=== PATIENT | female | born 1955 | race Caucasian/White ===

== ENCOUNTER 2018-09-12 17:36 | Emergency (ER) | payer OTHER ==
[~2018-09-12] VITALS: Ht 152.4 cm; Wt 59.9 kg
[2018-09-12 17:42] VITALS: BP_SYST 140
[2018-09-12] MEDS ORDERED: NACL 0.9% 1,000 ML IV ONE ×3 (20:36→22:30)
[2018-09-12 21:00] LABS: BILIRUBIN,URINE NEGATIVE (NEGATIVE); CLARITY/URINE CLOUDY (CLEAR); COLOR,URINE YELLOW (YELLOW); GLUCOSE,URINE NEGATIVE (NEGATIVE); KETONES,URINE TRACE (NEGATIVE); LEUKOCYTE ESTERASE ,URINE TRACE (NEGATIVE); NITRITE, URINE NEGATIVE (NEGATIVE); PROTEIN URINE TRACE (NEGATIVE)
[2018-09-12 21:16] LABS: BLOOD, URINE TRACE (NEGATIVE)
[2018-09-12 21:22] LABS: BASOPHILS % (AUTO) 0.3 % (0.0-2.0); CALCIUM 8.1 mg/dL (8.4-11.0); CREATININE 0.78 mg/dL (0.55-1.30); EOSINOPHILS # (AUTO) 0.1 K/uL (0.0-0.4); EOSINOPHILS % (AUTO) 1.4 % (0.0-4.0); HEMATOCRIT 30.9 % (36-48); HEMOGLOBIN 9.6 g/dL (12.0-16.0); LYMPHOCYTES # (AUTO) 1.7 K/uL (1.0-5.5); LYMPHOCYTES % (AUTO) 26.7 % (20.5-51.5); MEAN CORPUSCULAR HEMOGLOBIN 22 pg (27-31); MEAN CORPUSCULAR HGB CONC 31 % (32-36); MEAN CORPUSCULAR VOLUME 71 fL (79.0-98.0); MONOCYTES # (AUTO) 0.5 K/uL (0.0-1.0); MONOCYTES % (AUTO) 7.4 % (1.7-9.3); NEUTROPHILS # (AUTO) 3.9 K/uL (1.8-7.7); NEUTROPHILS % (AUTO) 64.2 % (40.0-70.0); PLATELET COUNT (AUTO) 273 K/uL (130-430); RED BLOOD CELL COUNT(AUTO) 4.33 MIL/uL (4.2-6.2); RED CELL DISTRIBUTION WIDTH 16.9 % (9.0-15.0); WHITE BLOOD COUNT (AUTO) 6.2 K/uL (4.8-10.8)
[2018-09-12 21:25] LABS: BACTERIA,URINE FEW /HPF (None Seen); MUCUS,URINE None Seen /LPF (None Seen); RBC,URINE 0-3 /HPF (0-3); URINE AMORPHOUS URATE 4+ /HPF (None Seen); WBC,URINE 0-3 /HPF (0-3)
[2018-09-12 21:26] LABS: POTASSIUM 2.5 mmol/L (3.5-5.1)
[2018-09-12 21:28] LABS: ALBUMIN 3.6 g/dL (3.4-4.8); TOTAL BILIRUBIN 0.8 mg/dL (0.0-1.0)
[2018-09-12] MEDS ORDERED: KCL 40 mEq in 100 mL (PREMIX) 100 ML IV ONE (22:00)
[2018-09-12] MEDS ORDERED: POTASSIUM CHLORIDE 20 MEQ/PKT PACKET PO ONE (22:00)
[2018-09-12] MEDS ORDERED: KCL 20 mEq in 100 mL (PREMIX) 200 ML IV ONE (22:22)
[2018-09-13 00:24] VITALS: BP_SYST 144
== END 2018-09-13 00:24 | disposition home or self-care (01) ==
LOC: SED 17:36
DX: K52.9 Noninfective gastroenteritis and colitis, unspecified (principal); E87.6 Hypokalemia; I10 Essential (primary) hypertension
CPT/HCPCS: 36415; 80053; 81000; 82150; 83690; 85025; 87086; 96361; 96365; 96366; 99283; J3480; J7030

== ENCOUNTER 2019-07-14 20:01 | Emergency (ER) | payer OTHER ==
[~2019-07-14] VITALS: Ht 152.4 cm; Wt 61.2 kg
[2019-07-14 20:44] VITALS: BP_SYST 159
--- NOTE | 2019-07-14 20:45 | NUR ---
Patient to ER bed 07 for evaluation.
--- NOTE | 2019-07-14 20:46 | NUR ---
patient arrived AOx4 with c/o nose bleed x 90 minutes that would not stop. patient denies pain or bleeding at this time. patient has no actively bleeding from either nare. patient denies dizziness, CONDE or otherwise at this time. no other complaint or injury at this time.
--- NOTE | 2019-07-14 20:49 | NUR ---
ER at bedside examining patient.
[2019-07-14] MEDS ORDERED: ONDANSETRON 4 MG ODT TAB PO ONE (21:30)
[2019-07-14] MEDS ORDERED: TRANEXAMIC ACID 1,000 MG/10 ML VIAL IV ONE (21:45)
[2019-07-14] MEDS ORDERED: MORPHINE 2 MG/ML INJ. SYRINGE IM ONE (21:45)
[2019-07-14] MEDS ORDERED: ACETAMINOPHEN 500 MG TABLET PO ONE (21:45)
[2019-07-14 22:49] VITALS: BP_SYST 147
--- NOTE | 2019-07-14 22:49 | NUR ---
Patient given written and verbal discharge instructions and verbalizes understanding. ER MD discussed with patient the results and treatment provided. Patient in stable condition. ID arm band removed. Rx of Zofran given. Patient educated on pain management and to follow up with PMD. Pain Scale 0/10. Opportunity for questions provided and answered. Medication side effect fact sheet provided.
== END 2019-07-14 22:49 | disposition home or self-care (01) ==
LOC: SED 20:01
DX: R04.0 Epistaxis (principal); I10 Essential (primary) hypertension
CPT/HCPCS: 96372; 96374; 99283; J2270; J3490; Q0162

== ENCOUNTER 2019-08-08 21:35 | Emergency (ER) | payer OTHER | END 2019-08-09 00:02 | disposition home or self-care (01) | LOC: SED 21:35 | DX: R04.0 Epistaxis (principal); I10 Essential (primary) hypertension; Z79.899 Other long term (current) drug therapy | CPT/HCPCS: 99281 ==

== ENCOUNTER 2019-08-17 10:40 | Inpatient (IN) | payer OTHER ==
[~2019-08-17] VITALS: Ht 152.4 cm; Wt 62.1 kg
[2019-08-17 10:48] VITALS: BP_SYST 136
--- NOTE | 2019-08-17 10:48 | NUR ---
Placed in room 2 . Placed on youth nutritional monitor, blood pressure machine and pulse oximeter. To gown for exam. Side rails up. Assumed care.
--- NOTE | 2019-08-17 10:50 | NUR ---
Patient arrived via POV, AAOx4, and ambulatory with steady gait. Patient states she received a call from Michelle Astorga NP at [facility] regarding abnormal labs. Patient H/H of 7.6/25.7. Patient states she has been feeling more winded, SOB, increased lethargy, and lightheaded for several weeks now. She thought it was normal, but she is getting prepared for surgery to remove an impacted ear tube. Patient states she does not take blood thinners, but has frequent nose bleeds. Which they were going to cauterize in surgery as well.
--- NOTE | 2019-08-17 11:11 | NUR ---
ER at bedside examining patient.
[2019-08-17] MEDS ORDERED: VALS160T2 PO (11:16)
--- NOTE | 2019-08-17 11:16 | NUR ---
Medication reconciliation completed with information provided by patient, medication bottles at bedside. Any prior medication reconciliation on file was reviewed and corrected.
[2019-08-17 11:44] LABS: BASOPHILS % (AUTO) 0.9 % (0.0-2.0); EOSINOPHILS # (AUTO) 0.1 K/uL (0.0-0.4); EOSINOPHILS % (AUTO) 3.8 % (0.0-4.0); HEMATOCRIT 25.8 % (36-48); HEMOGLOBIN 8.1 g/dL (12.0-16.0); LYMPHOCYTES # (AUTO) 1.2 K/uL (1.0-5.5); LYMPHOCYTES % (AUTO) 34.9 % (20.5-51.5); MEAN CORPUSCULAR HEMOGLOBIN 21 pg (27-31); MEAN CORPUSCULAR HGB CONC 32 % (32-36); MEAN CORPUSCULAR VOLUME 66 fL (79.0-98.0); MONOCYTES # (AUTO) 0.3 K/uL (0.0-1.0); MONOCYTES % (AUTO) 7.1 % (1.7-9.3); NEUTROPHILS # (AUTO) 1.9 K/uL (1.8-7.7); NEUTROPHILS % (AUTO) 53.3 % (40.0-70.0); PLATELET COUNT (AUTO) 264 K/uL (130-430); RED BLOOD CELL COUNT(AUTO) 3.88 MIL/uL (4.2-6.2); RED CELL DISTRIBUTION WIDTH 18.5 % (9.0-15.0); WHITE BLOOD COUNT (AUTO) 3.6 K/uL (4.8-10.8)
[2019-08-17 12:12] LABS: CALCIUM 9.1 mg/dL (8.4-11.0); CREATININE 0.84 mg/dL (0.55-1.30); TOTAL BILIRUBIN 0.6 mg/dL (0.0-1.0)
--- NOTE | 2019-08-17 12:18 | NUR ---
Patient resting comfortably, ambulatory to restroom with steady gait. Patient states she feels no dizziness upon ambulating. Patient encouraged to sit at bedside before standing suddenly.
[2019-08-17 12:27] LABS: POTASSIUM 3.6 mmol/L (3.5-5.1)
[2019-08-17 12:31] LABS: BILIRUBIN,URINE NEGATIVE (NEGATIVE); BLOOD, URINE NEGATIVE (NEGATIVE); CLARITY/URINE CLEAR (CLEAR); COLOR,URINE YELLOW (YELLOW); GLUCOSE,URINE NEGATIVE (NEGATIVE); KETONES,URINE NEGATIVE (NEGATIVE); LEUKOCYTE ESTERASE ,URINE NEGATIVE (NEGATIVE); NITRITE, URINE NEGATIVE (NEGATIVE); PROTEIN URINE NEGATIVE (NEGATIVE); UROBILINOGEN,URINE 0.2 (0.2-1.0)
--- NOTE | 2019-08-17 13:43 | NUR ---
Patient will be admitted to care of Dr. Freida Thacker. Admitted to Telemetry unit. Room assignment pending. Complete and up to date summary report printed. SBAR report to be given at bedside with opportunity for questions.
[2019-08-17] MEDS ORDERED: ONDANSETRON HCL 4 MG/2 ML VIAL IVP PRN (13:45)
[2019-08-17] MEDS ORDERED: NACL 0.9% 1,000 ML IV ONE (13:45)
--- NOTE | 2019-08-17 14:20 | NUR ---
ADMISSION NOTE Received patient from ER via gurney. Patient admitted with diagnosis of Anemia.Place on telemetry. Patient is awake, alert, oriented X 4. Patient oriented to hospital room, call light, toileting, pain management and safety-teach back done. Patient informed that I will be her nurse and that their room number is 125-A. Personal belongings checked and Belongings List documented. Call light within reach.
[2019-08-17 14:25] VITALS: BP_SYST 141
--- NOTE | 2019-08-17 14:40 | NUR ---
CONSULT GI ANEMIA MASHA VELAZQUEZ [phone] TUAN VELAZQUEZ [employer] S/W [employer]RL[employer] EXCHANGE
[2019-08-17] MEDS: ACETAMINOPHEN 325 MG TABLET PO PRN (15:26)
--- NOTE | 2019-08-17 16:00 | NUR ---
Rn Rounds: No complained made. Stable.
[2019-08-17 16:50] VITALS: BP_SYST 144
--- NOTE | 2019-08-17 17:18 | NUR ---
Rn Rounds: Patient resting. No acute distress.
--- NOTE | 2019-08-17 18:43 | NUR ---
END OF SHIFT: PATIENT RESTING. CALL LIGHT WITH IN REACH. BED LOCKED AT LOWEST POSITION.SAFETY MEASURES RENDERED. CONTINUE TO MONITOR.
--- NOTE | 2019-08-17 18:50 | NUR ---
Added notes: Spoke with the patient ,no need to be npo per Dr Soto,order change to Mechanical soft as ordered starting today dinner.
[2019-08-17 19:49] VITALS: BP_SYST 141
--- NOTE | 2019-08-17 19:50 | NUR ---
INITIAL NOTES PATIENT IS LAYING IN BED AND STABLE. NO SIGNS OR SYMPTOMS OF RESPIRATORY DISTRESS NOTED. CALL LIGHT EDUCATION IS SUCCESSFUL. PATIENT WAS ABLE TO DEMONSTRATE USAGE OF CALL LIGHT. PLAN OF CARE WAS DISCUSSED WITH PATIENT. BED IS LOCKED, ALARMED, AND AT THE LOWEST POSITION. FALL, SAFETY, AND RESPIRATORY PRECAUTIONS WILL BE PLACED THROUGHOUT THE SHIFT.
--- NOTE | 2019-08-17 21:50 | NUR ---
ROUNDING AT THIS TIME, ASSISTED PATIENT TO THE RESTROOM. PATIENT TOLERATED WELL. NO SIGNS OR SYMPTOMS OF RESPIRATORY DISTRESS NOTED. REPOSITION FOR COMFORT. CALL LIGHT IN REACH. BED IS LOCKED, ALARMED, AND AT THE LOWEST POSITION. WILL CONTINUE TO MONITOR.
--- NOTE | 2019-08-17 23:50 | NUR ---
ROUNDING PATIENT IS STABLE AND SLEEPING. NO SIGNS OR SYMPTOMS OF RESPIRATORY DISTRESS. CALL LIGHT IS WITHIN REACH. BED IS LOCKED, ALARMED, AND AT THE LOWEST POSITION. WILL CONTINUE TO MONITOR.
[2019-08-18] VITALS (7 sets, daily range): BP systolic 119–142
[2019-08-18] MEDS: ACETAMINOPHEN 325 MG TABLET PO PRN (00:50)
--- NOTE | 2019-08-18 03:49 | NUR ---
ROUNDING PATIENT IS SLEEPING IN BED. PATIENT IS STABLE AND SHOWS NO SIGNS OR SYMPTOMS OF RESPIRATORY DISTRESS. CALL LIGHT IS WITHIN REACH. BED IS LOCKED, ALARMED, AND AT THE LOWEST POSITION. WILL CONTINUE TO MONITOR.
--- NOTE | 2019-08-18 04:00 | NUR ---
ROUNDS PATIENT IS SLEEPING AND STABLE. NO SIGNS OR SYMPTOMS OF RESPIRATORY DISTRESS NOTED. CALL LIGHT IN REACH. BED IS LOCKED, ALARMED, AND AT THE LOWEST POSITION. WILL CONTINUE TO MONITOR.
--- NOTE | 2019-08-18 06:00 | NUR ---
CLOSING NOTE PATIENT IS STABLE AND IN BED, RESTING. PATIENT SHOWS NO SIGNS OR SYMPTOMS OF RESPIRATORY DISTRESS. CALL LIGHT IN REACH. BED IS LOCKED, ALARMED, AND AT THE LOWEST POSITION. FALL, SAFETY, AND ASPIRATION PRECAUTION HAD BEEN PLACED THROUGHOUT THE SHIFT. WILL CONTINUE TO MONITOR UNTIL AM REPORT IS GIVEN TO AM NURSE AT BEDSIDE.
--- NOTE | 2019-08-18 07:30 | NUR ---
AM ROUNDS: PATIENT AWAKE,SEMI HOWARD'S POSITION ON THE BED. IV SALINE LOCK AT RIGHT ARM INTACT. CALL LIGHT WITH IN REACH. BED LOCKED AT LOWEST POSITION. NOT IN ANY DISTRESS.
[2019-08-18] MEDS ORDERED: FAMO20TA8 PO (08:40)
[2019-08-18] MEDS ORDERED: FER300L PO (08:40)
[2019-08-18] MEDS ORDERED: PANTOPRAZOLE SODIUM 40 MG/VIAL (PROTONIX) IVP SCH ×2 (09:00→21:00)
[2019-08-18 09:34] LABS: BASOPHILS % (AUTO) 0.7 % (0.0-2.0); EOSINOPHILS # (AUTO) 0.1 K/uL (0.0-0.4); EOSINOPHILS % (AUTO) 2.5 % (0.0-4.0); HEMATOCRIT 23.8 % (36-48); HEMOGLOBIN 7.3 g/dL (12.0-16.0); LYMPHOCYTES # (AUTO) 1.1 K/uL (1.0-5.5); MEAN CORPUSCULAR HEMOGLOBIN 21 pg (27-31); MEAN CORPUSCULAR HGB CONC 31 % (32-36); MEAN CORPUSCULAR VOLUME 67 fL (79.0-98.0); MONOCYTES # (AUTO) 0.2 K/uL (0.0-1.0); MONOCYTES % (AUTO) 6.5 % (1.7-9.3); NEUTROPHILS # (AUTO) 1.6 K/uL (1.8-7.7); NEUTROPHILS % (AUTO) 54.3 % (40.0-70.0); PLATELET COUNT (AUTO) 245 K/uL (130-430); RED BLOOD CELL COUNT(AUTO) 3.58 MIL/uL (4.2-6.2); RED CELL DISTRIBUTION WIDTH 18.3 % (9.0-15.0)
--- NOTE | 2019-08-18 12:26 | NUR ---
Patient want to go home after blood transfusion , Dr. Thacker informed , to make an appointment in [facility] in a week, patient informed.
--- NOTE | 2019-08-18 12:30 | NUR ---
HOSPITALIST PAGED: CHARGE NURSE GUME SPOKE WTIH DR SHEN ,WITH ORDERS CAN GO HOME AFTER BLOOD TRANSFUSION IF CLEARED WITH GI DOCTOR.
--- NOTE | 2019-08-18 12:40 | NUR ---
GI PAGED: SPOKE WITH DR PHAN AND LETTY PATIENT CAN GO HOME AFTER BLOOD TRANSFUSION AND F/U WITH HER PCP SCHEDULED.
--- NOTE | 2019-08-18 13:05 | NUR ---
BT INITIATION: Consent signed per agreeing to administration of blood. Blood has been type and crossmatched. Blood sent from blood bank. Information on unit of blood checked against patient wristband at bedside by two nurses. All information matches. Patient or responsible green party informed of potential complications associated with blood transfusion. Informed of possible transfusion reaction symptoms. Aware of need to notify nurse at once of itching, shortness of breath, flushing, feeling of impending doom, or other symptoms not previously present. Vital signs taken within 5 minutes prior to initiation of transfusion. RN will remain with patient for first 15 minutes of transfusion at which time vital signs will be re-assessed.
--- NOTE | 2019-08-18 14:37 | NUR ---
RN ROUNDS: NO ADVERSE REACTIONS NOTED DURING ROUNDS. BLOOD TRANSFUSION ON GOING. NO PROBLEM.
--- NOTE | 2019-08-18 15:30 | NUR ---
RN ROUNDS: BLOOD TRANSFUSION ON GOING. NO COMPLICATIONS NOTED. CONTINUE TO MONITOR.
--- NOTE | 2019-08-18 16:20 | NUR ---
Transfusion finished: Blood transfusion done. Vital signs taken,afebrile and stable. No problem.
--- NOTE | 2019-08-18 17:40 | NUR ---
D/C Patient Patient given medication reconciliation form and D/C instructions. Exit Care provided. Patient verbalized understanding. MD discussed with patient the results and treatment provided. Ambulatory with steady gait for discharge to home. Patient in stable condition, ID band removed. IV catheter removed, intact and dressing applied, no active bleeding.E-script over the counter meds sent to [facility] per Md ,patient informed. Patient educated on pain management. All belongings sent with patient.
== END 2019-08-18 17:39 | disposition home or self-care (01) | DRG 812 ==
LOC: SED 10:40 → STU 13:31
PROVIDERS: ADMIT Internal Medicine; ATTEND Internal Medicine
PROC: 30233N1 Transfusion of Nonautologous Red Blood Cells into Peripheral Vein, Percutaneous Approach (ICD-10-PCS; principal; 2019-08-18)
DX: D50.9 Iron deficiency anemia, unspecified (principal); I10 Essential (primary) hypertension; J44.9 Chronic obstructive pulmonary disease, unspecified; K21.9 Gastro-esophageal reflux disease without esophagitis; Z79.899 Other long term (current) drug therapy; Z86.73 Personal history of transient ischemic attack (TIA), and cerebral infarction without residual deficits
CPT/HCPCS: 36415; 71045; 80053; 81003; 82550-TC; 82607; 84484; 85025; 86886; 86900; 86901; 86920; 93005; 99285; C9113; G0378; J7030; P9021